=== PATIENT | male | born 1955 | race Caucasian/White ===

== ENCOUNTER 2024-09-17 10:15 | Emergency (ER) | payer MEDICARE, OTHER ==
[~2024-09-17] VITALS: Ht 188 cm; Wt 112.0 kg
[2024-09-17 10:28] VITALS: BP 118/85
[2024-09-17] MEDS ORDERED: FLECAINIDE100 MG PO (10:30)
[2024-09-17] MEDS ORDERED: METFORMIN HCL500 M1 PO (10:30)
[2024-09-17] MEDS ORDERED: CRESTOR20 MG PO (10:31)
[2024-09-17] MEDS ORDERED: EZETIMIBE10 MG (10:31)
[2024-09-17] MEDS ORDERED: JANUVIA100 MG PO (10:31)
[2024-09-17] MEDS ORDERED: FENOFIBRATE145 MG PO (10:31)
[2024-09-17] MEDS ORDERED: JARDIANCE25 MG (10:32)
[2024-09-17] MEDS ORDERED: NITROGLYCERIN 0.4 MG/TAB SL ONE (10:50)
[2024-09-17] MEDS ORDERED: MORPHINE SULFATE 4 MG/ML VIAL IV ONE (10:50)
[2024-09-17] MEDS ORDERED: ASPIRIN 81 MG/TAB PO ONE (10:50)
[2024-09-17 11:00] VITALS: BP 120/81
[2024-09-17] MEDS ORDERED: ONDANSETRON HCl 4 MG/2 ML SDV IV ONE (11:00)
[2024-09-17 11:03] VITALS: BP 101/74
[2024-09-17 11:08] LABS: BASO% 0.2 % (0-3); EOS% 0.8 % (0-8); HEMATOCRIT 46.4 % (39.0-50.0); HEMOGLOBIN 15.1 g/dl (14.0-18.0); IMMATURE GRANULOCYTES 0.3 % (0.0-5.0); LYMPH% 21.1 % (15-41); MEAN CELL VOLUME 90.8 fL CALC (80.0-100.0); MEAN CORPUSCULAR HGB 29.5 pG CALC (26.0-32.0); MEAN CORPUSCULAR HGB CONC 32.5 g/dL CAL (32.0-36.0); MONO% 9.6 % (2-13); NEUT# 4.45 thou/uL (1.82-7.42); RED BLOOD COUNT 5.11 mill/uL (4.70-6.10); RED CELL DISTRI WIDTH 13.4 % (11.5-15.5)
[2024-09-17 11:11] VITALS: BP 86/60
[2024-09-17 11:15] LABS: ALBUMIN 4.7 g/dL (3.2-5.0); ALKALINE PHOSPHATASE 45 u/l (38-126); ANION GAP 16 (6-22 (CALC)); BILIRUBIN, TOTAL 0.7 mg/dL (0.2-1.3); BUN 20 mg/dL (8-23); BUN/CREATININE RATIO 24 (12-20 (CALC)); CARBON DIOXIDE 21 mmol/l (22-30); CHLORIDE 104 mmol/l (95-108); CREATININE 0.8 mg/dL (0.7-1.3); ESTIMATED GFR 96 ML/MIN (>=90 (CALC)); LIPASE 115 u/l (23-300); POTASSIUM 4.6 mmol/l (3.5-5.1); SGOT/AST 43 u/l (19-48); SODIUM 137 mmol/l (137-146); TOTAL PROTEIN 8.4 g/dL (6.3-8.2)
[2024-09-17 11:17] VITALS: BP 124/96
[2024-09-17 11:23] LABS: D-DIMER 0.43 mg/L (0.19-0.60)
[2024-09-17 11:28] LABS: PROTHROMBIN TIME 10.9 SECONDS (9.0-12.5)
[2024-09-17] MEDS ORDERED: LIDOCAINE 2% W/ EPINEPHRINE 30 ML MDV STI ONE (11:30)
[2024-09-17] MEDS ORDERED: MIDAZOLAM HCL 2 MG/2 ML VIAL IV ONE ×2 (11:30→14:05)
[2024-09-17] MEDS ORDERED: LIDOCAINE W/ EPINEPHRINE 10 MG/ML INJ STI ONE (11:30)
[2024-09-17] MEDS ORDERED: SODIUM CHLORIDE 0.9% 1,000 ML IV ONE ×2 (11:38→14:15)
[2024-09-17 16:41] VITALS: BP 124/96
== END 2024-09-17 16:45 ==
LOC: ED 10:15 → ED-I 13:00 → ED 16:45
PROVIDERS: Emergency Medicine
PROC: 0W9B30Z Drainage of Left Pleural Cavity with Drainage Device, Percutaneous Approach (ICD-10-PCS; principal; 2024-09-17)
DX: J93.83 Other pneumothorax (principal); I10 Essential (primary) hypertension; E11.9 Type 2 diabetes mellitus without complications; Z79.84 Long term (current) use of oral hypoglycemic drugs
CPT/HCPCS: J2405